=== PATIENT | female | born 1935 | race Caucasian/White ===

== ENCOUNTER 2018-09-28 23:33 | Emergency (ER) | payer MEDICARE ==
[~2018-09-28] VITALS: Ht 154.9 cm; Wt 77.1 kg
[2018-09-28 23:35] VITALS: BP 194/91
--- NOTE | 2018-09-28 23:40 | NUR ---
82/F BIBA FROM [facility]. S/P FALL 2 DAYS AGO. PT STATED THAT SHE FELL FORWARDS, REPORTS IMPACT ON L RIBS, DENIES HEAD TRAUMA/LOC. PT C/O 03/12 INTERMITTENT L LATERAL SIDE/RIBS PAIN, X2 DAYS. NO ABNORMALITY OR BRUISING NOTED ON L RIBS, REPORTS MILD TENDERNESS. PT DENIES FERGUSON, N/V. PT AOX4, GCS 15, SKIN PINK WARM AND DRY, RR EVEN AND UNLABORED. LUNG SOUNDS CLEAR BL. HX DM, HTN, GOUT, HIGH CHOLESTEROL, HYPOTHYROID RX PLAVIX, ATORVASTATIN, LISINOPRIL, ALLOPURINOL
--- NOTE | 2018-09-28 23:40 | NUR ---
PT BIB AMBULANCE. PLACED ON ER BED 5
[2018-09-28] MEDS ORDERED: AMLO5TAB5 PO (23:45)
[2018-09-28] MEDS ORDERED: SYN.1 PO (23:45)
[2018-09-28] MEDS ORDERED: LISI20TA2 PO (23:45)
[2018-09-28] MEDS ORDERED: ATOR40TA PO (23:45)
[2018-09-28] MEDS ORDERED: CLOP75TA55 PO (23:45)
[2018-09-28] MEDS ORDERED: VITD1000 PO (23:45)
[2018-09-28] MEDS ORDERED: ALLO100T21 PO (23:45)
--- NOTE | 2018-09-29 00:04 | NUR ---
DR. MINOR BEDSIDE EVALUATING PT
[2018-09-29 00:55] LABS: BASOPHILS # (AUTO) 0.1 K/uL (0.00-0.22); EOSINOPHILS # (AUTO) 0.2 K/uL (0-0.4); EOSINOPHILS % (AUTO) 3.7 % (0.0-4.0); HEMATOCRIT 39.4 % (36-48); HEMOGLOBIN 12.9 g/dL (12.0-16.0); LYMPHOCYTES % (AUTO) 32.2 % (20.5-51.1); MEAN CORPUSCULAR HEMOGLOBIN 28 pg (27-31); MEAN CORPUSCULAR HGB CONC 33 g/dL (33-37); MEAN CORPUSCULAR VOLUME 84.6 fL (80-94); MONOCYTES # (AUTO) 0.4 K/uL (0.8-1.0); MONOCYTES % (AUTO) 6.9 % (1.7-9.3); NEUTROPHILS # (AUTO) 3.5 K/uL (1.8-7.7); NEUTROPHILS % (AUTO) 56.2 % (42.2-75.2); PLATELET COUNT (AUTO) 235 K/uL (140-450); RED BLOOD CELL COUNT(AUTO) 4.65 MIL/uL (4.20-5.40); RED CELL DISTRIBUTION WIDTH 14.2 % (11.6-13.7); WHITE BLOOD COUNT (AUTO) 6.2 K/uL (4.8-10.8)
--- NOTE | 2018-09-29 00:55 | NUR ---
Pt hypertensive, BP 182/83. asymptomatic. Dr Ulrich aware. no new orders at this time.
--- NOTE | 2018-09-29 00:58 | NUR ---
PT TAKEN TO CT VIA BED
--- NOTE | 2018-09-29 01:14 | NUR ---
PT RETURNED FROM CT BACK IN ER BED 5
--- NOTE | 2018-09-29 01:15 | NUR ---
Pt unable to provide urine sample. Dr. Ulrich aware. No new orders at this time.
[2018-09-29] MEDS ORDERED: HYDROcodone/APAP 5/325 MG 1 TAB TAB PO ONE (01:20)
[2018-09-29 01:35] LABS: SODIUM SERUM 142 mmol/L (136-145)
[2018-09-29 01:36] LABS: ALBUMIN 3.8 g/dL (3.4-5.0); ANION GAP 12.4 (8-16); ASPARTATE AMINOTRANSFERASE 22 U/L (15-37); CHLORIDE 106 mmol/L (98-107); CREATININE 0.7 mg/dL (0.6-1.3); GLUCOSE 118 mg/dL (74-106); POTASSIUM 3.4 mmol/L (3.5-5.1); TOTAL BILIRUBIN 0.4 mg/dL (0.0-1.0); UREA NITROGEN, BLOOD 16 mg/dL (7-18)
[2018-09-29 02:40] VITALS: BP 182/83
--- NOTE | 2018-09-29 02:40 | NUR ---
Patient discharged with v/s stable. Written and verbal after care instructions given and explained. Patient alert, oriented and verbalized understanding of instructions. Wheel Chair Assisted to car. All questions addressed prior to discharge. ID band removed. Patient advised to follow up with PMD. Rx of Tylenol given. Patient educated on indication of medication including possible reaction and side effects. Opportunity to ask questions provided and answered.
== END 2018-09-29 02:40 | disposition home or self-care (01) ==
LOC: MED 23:33
DX: R07.81 Pleurodynia (principal); E11.9 Type 2 diabetes mellitus without complications; I10 Essential (primary) hypertension; Z79.899 Other long term (current) drug therapy
CPT/HCPCS: 36415; 71250; 80053; 85025; 93005; 99284

== ENCOUNTER 2020-01-29 18:13 | Inpatient (IN) | payer OTHER, SELFPAY ==
[~2020-01-29] VITALS: Ht 147.3 cm; Wt 71.7 kg
[~2020-01-29 18:13] MED LIST: ALLO100T21 PO; AMLO5TAB5 PO; ATOR40TA PO; CLOP75TA55 PO; LISI20TA2 PO; SYN.1 PO; VITD1000 PO
[2020-01-29 18:15] VITALS: BP 155/104
--- NOTE | 2020-01-29 18:20 | NUR ---
ERMD AT BEDSIDE
--- NOTE | 2020-01-29 18:20 | NUR ---
84 Y/O F C/C DYSPNEA X SEVERAL MONTHS PER PT. PT PRESENTS EUPNIC,AMBULATE WITH ASSIST,A/OX4, NO RESPIRATORY DISTRESS NOTED. PER PT S/P FALL YESTERDAY, DENIES HITTING HEAD OR LOC. PT COMPLAINTS OF BILATERAL KNEE PAIN, WITH LEFT KNEE PAIN MORE SEVERE, 6/10 PAIN, THROBBING PAIN. NKA. HX HTN,THYROID DISEASE. RX AMLODOPINE,SYNTHROID. PT UNABLE TO RECALL BLOOD THINNER MEDICATION, PER PT TAKES BLOOD THINNERS. NO NVD. SIDE RAIL X2.
[2020-01-29] MEDS ORDERED: VALS40TA3 PO (18:31)
--- NOTE | 2020-01-29 18:43 | NUR ---
RAD AT BEDSIDE
--- NOTE | 2020-01-29 19:08 | NUR ---
REPORT GIVEN TO JULI RESENDEZ FOR CONTINUITY OF CARE
[2020-01-29 19:15] LABS: BASOPHILS # (AUTO) 0.1 K/uL (0.00-0.22); BASOPHILS % (AUTO) 0.7 % (0.0-2.0); EOSINOPHILS # (AUTO) 0.2 K/uL (0-0.4); EOSINOPHILS % (AUTO) 2.6 % (0.0-4.0); HEMATOCRIT 39.1 % (36-48); HEMOGLOBIN 12.8 g/dL (12.0-16.0); LYMPHOCYTES # (AUTO) 1.4 K/uL (2.5-16.5); MEAN CORPUSCULAR HEMOGLOBIN 29 pg (27-31); MEAN CORPUSCULAR HGB CONC 33 g/dL (33-37); MEAN CORPUSCULAR VOLUME 86.9 fL (80-94); MONOCYTES # (AUTO) 0.4 K/uL (0.8-1.0); MONOCYTES % (AUTO) 6.3 % (1.7-9.3); NEUTROPHILS % (AUTO) 70.4 % (42.2-75.2); PLATELET COUNT (AUTO) 237 K/uL (140-450); WHITE BLOOD COUNT (AUTO) 7.1 K/uL (4.8-10.8)
--- NOTE | 2020-01-29 19:31 | NUR ---
MASSIEL antigen test collected via nasopharyngeal route.
--- NOTE | 2020-01-29 19:33 | NUR ---
pt remains laying down on bed, HOB elevated. no needs at this time.
[2020-01-29 19:34] LABS: ALBUMIN 3.8 g/dL (3.4-5.0); ANION GAP 16.8 (8-16); ASPARTATE AMINOTRANSFERASE 14 U/L (15-37); CARBON DIOXIDE 24.7 mmol/L (21-32); CHLORIDE 106 mmol/L (98-107); CREATININE 0.9 mg/dL (0.6-1.3); GLUCOSE 187 mg/dL (74-106); POTASSIUM 3.5 mmol/L (3.5-5.1); SODIUM SERUM 144 mmol/L (136-145); TOTAL BILIRUBIN 0.5 mg/dL (0.0-1.0); UREA NITROGEN, BLOOD 17 mg/dL (7-18)
--- NOTE | 2020-01-29 19:37 | NUR ---
spoke to toney pt's daughter. asking about pt status.
--- NOTE | 2020-01-29 19:59 | NUR ---
critical lab value of troponin 0.[address] Solis.
[2020-01-29] MEDS ORDERED: lisinopriL 20 MG TAB PO ONE (20:20)
[2020-01-29] MEDS ORDERED: METOPROLOL 25 MG TAB PO ONE (20:20)
--- NOTE | 2020-01-29 21:10 | NUR ---
Patient will be admitted to care of Dr. Benavides. Admited to telemetry. Will go to room 119. Belongings list completed. Report to Claudette RESENDEZ.
--- NOTE | 2020-01-29 21:13 | NUR ---
ADMITTED 84 F, FROM [facility], AOX4, ON 3L NC, RESPIRATION EVEN AND UNLABORED, NO SOB, DENIES PAIN, WITH IV CANNULA 20 G AT LEFT HAND, INTACT AND PATENT, MRSA SWAB DONE, V/S TAKEN, ORIENTED TO ROOM, ANSWER ALL QUESTIONS, KEPT COMFORTABLE, PLAN OF CARE DISCUSSED, FALL RISK PROTOCOL OBSERVED, SAFETY MEASURES IN PLACE, CALL LIGHT WITHIN REACH.
[2020-01-29] MEDS ORDERED: NACL 0.9% 1,000 ML IV SCH (22:05)
[2020-01-29] MEDS ORDERED: FUROSEMIDE 40 MG/4 ML VIAL IVP SCH (22:05)
--- NOTE | 2020-01-29 22:05 | NUR ---
SPOKE TO DR. LOVING RE: ADMISSION OF PATIENT AND INCREASED BP OF 187/86, HR 70, DENIES PAIN, NO SOB, NO DISTRESS NOTED. ORDERED, LASIX IVP, LISINOPRIL PO, METOPROLOL PO, IVF OF NS AT 10CC/HR. NOTED AND CARRIED OUT.
[2020-01-29] MEDS ORDERED: lisinopriL 20 MG TAB ONE (23:12)
[2020-01-29] MEDS ORDERED: METOPROLOL 25 MG TAB ONE (23:13)
[2020-01-30] VITALS: BP 158/67
--- NOTE | 2020-01-30 | NUR ---
V/S TAKEN, DENIES PAIN, NO SOB.
[2020-01-30] MEDS ORDERED: DOCUSATE SODIUM 100 MG GELCAP PO PRN (00:35)
[2020-01-30] MEDS ORDERED: ZOLPIDEM 5 MG TAB PO PRN (00:35)
[2020-01-30] MEDS ORDERED: ACETAMINOPHEN 325 MG TAB PO PRN (00:35)
[2020-01-30] MEDS ORDERED: HYDROcodone/APAP 5/325 MG 1 TAB TAB PO PRN (00:35)
[2020-01-30] MEDS ORDERED: LORazepam 2 MG/ML VIAL IM/IVP PRN (00:35)
[2020-01-30] MEDS ORDERED: MORPHINE SULFATE 2 MG/ML SYR IVP PRN (00:35)
[2020-01-30] MEDS ORDERED: NITROGLYCERIN 0.4 MG TAB SL PRN (00:35)
[2020-01-30] MEDS ORDERED: ONDANSETRON 4 MG/2 ML VIAL IM/IVP PRN (00:35)
[2020-01-30] MEDS: NACL 0.9% 1,000 ML IV SCH (00:35)
[2020-01-30] MEDS ORDERED: POTASSIUM CHLORIDE 10 MEQ TABER PO PRN (01:10)
[2020-01-30] MEDS ORDERED: MAG SULF 2000 MG/WATER PREMIX 50 ML IV PRN (01:10)
[2020-01-30 02:04] LABS: CHOL/HDL RATIO 4.6 (1-4.5)
[2020-01-30 02:08] LABS: THYROID STIMULATING HORMONE 0.03 uIU/mL (0.34-3.74)
--- NOTE | 2020-01-30 02:31 | NUR ---
PATIENT IS ASLEEP, RESPIRATION EVEN AND UNLABORED.
[2020-01-30 04:00] VITALS: BP 117/41
[2020-01-30] MEDS: LEVOTHYROXINE 0.1 MG TAB PO SCH (05:54)
--- NOTE | 2020-01-30 05:57 | NUR ---
SYNTHROID PO GIVEN ORDERED, TOLERATED WELL.
--- NOTE | 2020-01-30 07:27 | NUR ---
RECEIVED REPORT FROM NIGHT NURSE FOR CONTINUITY OF CARE, PT IS STABLE, PT IS ASLEEP, NO SIGNS OF RESPIRATORY DISTRESS NOTED, RESPIRATIONS ARE EVEN AND UNLABORED ON ROOM AIR, BED IN LOW POSITION, PT HAS LH20G INFUSING NS AT10ML, SKIN INTACT, PT IS FALL RISK,SAFETY MEASURES IN PLACE, CALL LIGHT WITHIN REACH, WILL CONTINUE TO MONITOR.
--- NOTE | 2020-01-30 07:28 | NUR ---
PATIENT IS IN STABLE CONDITION. BEDSIDE ENDORSEMENT GIVEN TO AM SHIFT RN FOR CONTINUITY OF CARE.
--- NOTE | 2020-01-30 07:53 | NUR ---
PATIENT HAS BEEN SCREENED AND CATEGORIZED MODERATE NUTRITION RISK. PATIENT WILL BE SEEN WITHIN 3-5 DAYS OF ADMISSION. 02/01/20 02/03/[address]
[2020-01-30 08:00] VITALS: BP 120/43
[2020-01-30] MEDS: amLODIPine 5 MG TAB PO SCH ×2 (09:00→09:15)
[2020-01-30] MEDS: METOPROLOL 25 MG TAB PO SCH ×2 (09:00→20:54)
[2020-01-30] MEDS: lisinopriL 20 MG TAB PO SCH (09:00)
[2020-01-30] MEDS ORDERED: ATORVASTATIN 20 MG TAB PO SCH (09:00)
[2020-01-30] MEDS: ASPIRIN 81 MG TAB.CHEW PO SCH (09:00)
[2020-01-30] MEDS: VALSARTAN 80 MG TAB PO SCH (09:19)
[2020-01-30] MEDS: CHOLECALCIFEROL 1,000 IU TAB PO SCH (09:20)
[2020-01-30] MEDS: CLOPIDOGREL 75 MG TAB PO SCH (09:20)
[2020-01-30] MEDS: FUROSEMIDE 40 MG/4 ML VIAL IVP SCH (09:21)
--- NOTE | 2020-01-30 09:27 | NUR ---
ADMINISTERED SCHEDULED MEDICATION, MEDICATION EDUCATION GIVEN, PT VERBALIZED UNDERSTANDING, PT TOLERATED WELL, PT IS STABLE, NO SIGNS OF DISTRESS NOTED, CALL LIGHT WITHIN REACH, ALL NEEDS MET.
--- NOTE | 2020-01-30 09:44 | NUR ---
RECEIVED TORB FROM NAKUL SEYMOUR FOR TROPONIN NOW AND IN 8 HOURS , WILL INPUT ORDER
--- NOTE | 2020-01-30 11:40 | NUR ---
HELP PT DIAL PHONE TO SPEAK WITH HOBBY, PT EDUCATED ON USE OF PHONE, PT IS STABLE, NO SIGNS OF DISTRESS NOTED, CALL LIGHT WITHIN REACH.
[2020-01-30 12:00] VITALS: BP 135/56
--- NOTE | 2020-01-30 13:00 | NUR ---
PT SITTING IN BED, NO SIGNS OF DISTRESS NOTED, CALL LIGHT WITHIN REACH.
--- NOTE | 2020-01-30 15:13 | NUR ---
PT RESTING IN BED, NO SIGNS OF DISTRESS NOTED, ALL NEEDS MET, CALL LIGHT WITHIN REACH.
[2020-01-30 16:00] VITALS: BP 122/54
--- NOTE | 2020-01-30 18:45 | NUR ---
OBTAIN URINE SAMPLE FOR UA
[2020-01-30 18:59] LABS: APPEARANCE,URINE CLEAR (CLEAR); BILIRUBIN,URINE NEGATIVE (NEGATIVE); BLOOD, URINE NEGATIVE (NEGATIVE); COLOR,URINE YELLOW (YELLOW); LEUKOCYTE ESTERASE ,URINE NEGATIVE (NEGATIVE); NITRITE, URINE NEGATIVE (NEGATIVE); PH,URINE 5.5 (5.0-9.0); UGLUCOSE NEGATIVE (NEGATIVE)
--- NOTE | 2020-01-30 19:05 | NUR ---
RECEIVED PATIENT IN STABLE CONDITION FROM AM SHIFT NURSE FOR CONTINUITY OF CARE. TELE PATIENT. AAOX3-4, ABLE TO MAKE NEEDS KNOWN. RESPIRATIONS EVEN, UNLABORED. CONTINUES ON O2 3L VIA NC, O2SAT 94%. SKIN WARM, DRY. IV SITE TO LEFT FOREARM PATENT/INTACT, INFUSING FLUIDS WELL. NO C/O PAIN. NO S/S ACUTE DISTRESS. ABDOMEN SOFT, NONTENDER, NONDISTENDED. PATIENT IS INCONTINENT OF BOWEL AND BLADDER. PLAN OF CARE DISCUSSED WITH PATIENT. SAFETY PRECAUTIONS IN PLACE. CALL LIGHT WITHIN REACH.
--- NOTE | 2020-01-30 19:05 | NUR ---
ENDORSE PT TO NIGHT NURSE FOR CONTINUITY OF CARE, PT IS STABLE
[2020-01-30 19:08] LABS: BARBITURATE, URINE NEGATIVE ng/ml (NEG <=200); BENZODIAZEPINE, URINE NEGATIVE ng/mL (NEG <=200); CANNABINOID, URINE NEGATIVE ng/mL (NEG <=50); COCAINE, URINE NEGATIVE ng/mL (NEG <=300); OPIATE, URINE NEGATIVE ng/mL (NEG <=2000); PHENCYCLIDINE SCREEN,URINE NEGATIVE ng/mL (NEG <=25)
[2020-01-30 20:00] VITALS: BP 119/74
[2020-01-30] MEDS: ATORVASTATIN 20 MG TAB PO SCH (20:53)
--- NOTE | 2020-01-30 21:00 | NUR ---
PATIENT RESTING COMFORTABLY IN BED. NO C/O PAIN. NO S/S ACUTE DISTRESS. TURN AND REPOSITIONED FOR COMFORT. CALL LIGHT WITHIN REACH. SAFETY PRECAUTIONS IN PLACE.
--- NOTE | 2020-01-30 23:27 | NUR ---
PATIENT IS ASLEEP AND CONTINUES IN STABLE CONDITION. NO S/S ACUTE DISTRESS. CALL LIGHT WITHIN REACH.
[2020-01-31] VITALS: BP 132/54
[2020-01-31] MEDS: NACL 0.9% 1,000 ML IV SCH (00:35)
--- NOTE | 2020-01-31 01:12 | NUR ---
MADE ROUNDS. INCONTINENT CARE RENDERED WITH HAIR CUTTER AT BEDSIDE. NO C/O PAIN. NO S/S ACUTE DISTRESS. CALL LIGHT WITHIN REACH. SAFETY PRECAUTIONS IN PLACE.
--- NOTE | 2020-01-31 03:30 | NUR ---
PROVIDED EDUCATION REGARDING NECESSITY OF TAKING VITALS WELL PLAN OF CARE. PATIENT VERBALIZED UNDERSTANDING BUT NEEDS REINFORCEMENT. PATIENT IS IN STABLE CONDITION AT THIS TIME. NO C/O PAIN. NO S/S ACUTE DISTRESS. CALL LIGHT WITHIN REACH. SAFETY PRECAUTIONS IN PLACE.
[2020-01-31 04:00] VITALS: BP 129/69
--- NOTE | 2020-01-31 05:15 | NUR ---
PATIENT RESTING COMFORTABLY IN BED. NO C/O PAIN. NO S/S ACUTE DISTRESS. CALL LIGHT WITHIN REACH. SAFETY PRECAUTIONS IN PLACE.
[2020-01-31] MEDS: LEVOTHYROXINE 0.1 MG TAB PO SCH (06:00)
[2020-01-31 06:40] LABS: BASOPHILS # (AUTO) 0.1 K/uL (0.00-0.22); BASOPHILS % (AUTO) 1.1 % (0.0-2.0); EOSINOPHILS # (AUTO) 0.3 K/uL (0-0.4); EOSINOPHILS % (AUTO) 6.1 % (0.0-4.0); HEMATOCRIT 39.3 % (36-48); HEMOGLOBIN 12.8 g/dL (12.0-16.0); LYMPHOCYTES # (AUTO) 1.5 K/uL (2.5-16.5); LYMPHOCYTES % (AUTO) 29.1 % (20.5-51.1); MEAN CORPUSCULAR HEMOGLOBIN 28 pg (27-31); MEAN CORPUSCULAR HGB CONC 33 g/dL (33-37); MEAN CORPUSCULAR VOLUME 87.1 fL (80-94); MONOCYTES # (AUTO) 0.5 K/uL (0.8-1.0); MONOCYTES % (AUTO) 9.1 % (1.7-9.3); NEUTROPHILS # (AUTO) 2.8 K/uL (1.8-7.7); NEUTROPHILS % (AUTO) 54.6 % (42.2-75.2); PLATELET COUNT (AUTO) 235 K/uL (140-450); RED BLOOD CELL COUNT(AUTO) 4.51 MIL/uL (4.20-5.40); RED CELL DISTRIBUTION WIDTH 14.9 % (11.6-13.7); WHITE BLOOD COUNT (AUTO) 5.1 K/uL (4.8-10.8)
[2020-01-31 06:56] LABS: ANION GAP 12.6 (8-16); CARBON DIOXIDE 26.7 mmol/L (21-32); CHLORIDE 107 mmol/L (98-107); CREATININE 0.8 mg/dL (0.6-1.3); GLUCOSE 117 mg/dL (74-106); POTASSIUM 3.3 mmol/L (3.5-5.1); SODIUM SERUM 143 mmol/L (136-145); UREA NITROGEN, BLOOD 24 mg/dL (7-18)
[2020-01-31 07:03] LABS: MAGNESIUM 1.6 mg/dL (1.8-2.4); PHOSPHORUS 4.5 mg/dL (2.5-4.9)
--- NOTE | 2020-01-31 07:15 | NUR ---
ENDORSED PATIENT IN STABLE CONDITION TO AM SHIFT NURSE FOR CONTINUITY OF CARE.
--- NOTE | 2020-01-31 07:16 | NUR ---
RECEIVED REPORT FROM PM RNJAMIR. PT CAME FROM [facility]. C/O: SOB. DX: ELEVATED TROPONIN, FLUID OVERLOAD, AND PULMONARY EDEMA. HX: CHF, CAD, HTN. NKA. TELE: SB 53-58. IV: LT FA 20G NS AT 10MLS/HR. CARDIAC DIET. O2: NC 3L 94-96%. PT USES A WALKER. NO BM. SKIN IS INTACT. TROPONIN IS TRENDING DOWN 0.065. PENDING RESULTS: ECHO, CHX. PT FELL AT [facility]. XRAY AND CT COMPLETE FOR FALL.
[2020-01-31 08:00] VITALS: BP 135/52
[2020-01-31 08:09] LABS: T4 (THYROXINE) 9.7 ug/dL (4.5-12.0)
[2020-01-31] MEDS: METOPROLOL 25 MG TAB PO SCH ×2 (09:00→20:25)
[2020-01-31] MEDS: lisinopriL 20 MG TAB PO SCH ×2 (09:00→09:46)
[2020-01-31] MEDS: ASPIRIN 81 MG TAB.CHEW PO SCH ×2 (09:00→09:44)
[2020-01-31] MEDS: VALSARTAN 80 MG TAB PO SCH (09:45)
[2020-01-31] MEDS: amLODIPine 5 MG TAB PO SCH (09:45)
[2020-01-31] MEDS: CLOPIDOGREL 75 MG TAB PO SCH (09:45)
--- NOTE | 2020-01-31 09:45 | NUR ---
ADMINISTERED SCHED MED PRESCRIBED PER MD ORDER. PT REFUSED ASPIRIN AND LISINOPRIL. EDUCATED PATIENT ON PURPOSE OF MEDICATIONS. PT STILL REFUSED. PT TOLERATED WELL. MEDICATION EDUCATION PERFORMED. PT VERBALIZED UNDERSTANDING. SAFETY MEASURES IN PLACE. WILL CONTINUE TO MONITOR
[2020-01-31] MEDS: CHOLECALCIFEROL 1,000 IU TAB PO SCH (09:46)
[2020-01-31] MEDS: FUROSEMIDE 40 MG/4 ML VIAL IVP SCH (09:50)
--- NOTE | 2020-01-31 11:00 | NUR ---
PT IS RESTING IN BED. NO COMPLAINTS OF PAIN. RESPIRATIONS ARE EVEN AND UNLABORED. WILL CONTINUE TO MONITOR
[2020-01-31 12:00] VITALS: BP 168/60
--- NOTE | 2020-01-31 13:00 | NUR ---
PT IS RESTING IN BED, EYES OPEN. NO COMPLAINTS PAIN. PT IS ABLE TO SELF REPOSITION. NO SIGNS OF DISTRESS.
[2020-01-31 16:00] VITALS: BP 145/51
--- NOTE | 2020-01-31 16:30 | NUR ---
PT IS RESTING IN BED. VS STABLE. COOK MESS, ANTONINO CHANGED PT. NO COMPLAINTS OF PAIN.
--- NOTE | 2020-01-31 18:50 | NUR ---
STARTED MAG IN STERILE WATER DAILY PRN FOR MG+ OF 1.6. PT TOLERATING WELL
--- NOTE | 2020-01-31 19:24 | NUR ---
TRANSFER OF CARE TO PM RNCRISTIAN. PT IS RESTING IN BED. NO SIGNS OF DISTRESS.
--- NOTE | 2020-01-31 19:25 | NUR ---
RECEIVED PT IN STABLE CONDITION FROM AM NURS.E FOR CONTINUITY OF CARE. TELE PT. AWAKE,ALERT AND ORIENTED X4. BEDREST. WITH NO DISTRESS NOTED. O2 3L/NC. IVF INFUSING WELL ON THE LT FA G#20. CLEAR AND PATENT. FREQ TROUNDS NEEDED. SIDE RAILS UP X2. BED ON ,OW POSITTION. CALL LIGHT WITHIN REACH. WILL CONTINUETO MONITOR.
[2020-01-31 20:00] VITALS: BP 146/52
[2020-01-31] MEDS: ATORVASTATIN 20 MG TAB PO SCH (20:24)
--- NOTE | 2020-01-31 20:30 | NUR ---
TOOK ALL NIGHT DUE MEDS . TOLERATED WELL. NO C/O ANY DISCOMFORT NOTED.
--- NOTE | 2020-01-31 22:00 | NUR ---
MADE ROUNDS. PT REPOSITIONED FOR COMFORT. NO C/O AY PAIN NOTED.
[2020-02-01] VITALS: BP 118/56
[2020-02-01] MEDS: NACL 0.9% 1,000 ML IV SCH (00:35)
--- NOTE | 2020-02-01 00:40 | NUR ---
MADE ROUNDS. SLEEP. NO S/S OF ANY DISTRESS NOTED.
--- NOTE | 2020-02-01 02:00 | NUR ---
CHECKED ON PT. ASLEEP. NO S/S OF ANY DISCOMFORT NOR DISTRESS NOTED.
--- NOTE | 2020-02-01 04:12 | NUR ---
VITLA SIGNS TAKE, O2 SAT 93% ON ROOM AIR. NO DISTRESS NOTED. PT REFUSED TO HAVE THE O2 THIS AM. SHE SAID IT MADE HER FEEL UNCOMFORTABLE .
[2020-02-01 04:26] VITALS: BP 125/43
--- NOTE | 2020-02-01 05:00 | NUR ---
PT REFUSED TO HABE BLOOD DRAW THIS AM. LAB TO TRY LATER TIME.
[2020-02-01] MEDS: LEVOTHYROXINE 0.1 MG TAB PO SCH (05:51)
--- NOTE | 2020-02-01 07:28 | NUR ---
ENDORSED PT IN STABLE CONDITION TO AM NURSE.
--- NOTE | 2020-02-01 07:29 | NUR ---
RECEIVED PT FROM NIGHT NURSE. AWAKE, ALERT AND ORIENTED X3, NO C/O PAIN AT THIS TIME, NO SOB, RESPIRATIONS ARE EVEN AND UNLABORED. ON ROOM AIR. WITH IV ON LFA 20G ON TKO. SAFETY PRECAUTIONS IN PLACE. CALL LIGHT WITHIN REACH. WILL CONTINUE TO MONITOR.
[2020-02-01 08:00] VITALS: BP 134/53
[2020-02-01] MEDS ORDERED: ASPI81CT95 PO (08:10)
[2020-02-01] MEDS ORDERED: ATOR20TA40 PO (08:10)
[2020-02-01] MEDS ORDERED: METO25TA PO (08:10)
[2020-02-01] MEDS ORDERED: FURO-570 PO (08:12)
[2020-02-01] MEDS: METOPROLOL 25 MG TAB PO SCH (09:00)
--- NOTE | 2020-02-01 09:20 | NUR ---
DUE MORNING MEDS GIVEN. TOLERATED PO MEDS WELL.
[2020-02-01] MEDS: FUROSEMIDE 40 MG/4 ML VIAL IVP SCH (09:55)
[2020-02-01] MEDS: ASPIRIN 81 MG TAB.CHEW PO SCH (09:55)
[2020-02-01] MEDS: ATORVASTATIN 20 MG TAB PO SCH (09:56)
[2020-02-01] MEDS: amLODIPine 5 MG TAB PO SCH (09:56)
[2020-02-01] MEDS: lisinopriL 20 MG TAB PO SCH (09:56)
[2020-02-01] MEDS: CLOPIDOGREL 75 MG TAB PO SCH (09:56)
[2020-02-01] MEDS: CHOLECALCIFEROL 1,000 IU TAB PO SCH (09:56)
[2020-02-01] MEDS: VALSARTAN 80 MG TAB PO SCH (09:56)
--- NOTE | 2020-02-01 11:00 | NUR ---
PT RESTING IN BED. NO C/O PAIN, NO SOB, NO APPARENT DISTRESS
--- NOTE | 2020-02-01 14:00 | NUR ---
DISCHARGE INSTRUCTIONS AND PRESCRIPTION GIVEN TO PT. ALSO GIVEN TO PT'S SON. BOTH VERBALIZED UNDERSTANDING. MD FOLLOW UP INSTRUCTED. DIET TEACHING DONE. REMOVED IV WITH LUMEN INTACT. ID BAND REMOVED. ASSISTED PT TO FRONT LOBBY. PICKED BY SON VIA PRIVATE VEHICLE. PT STABLE UPON DISCHARGE
[2020-02-01] MEDS ORDERED: LEVO0.083 PO (15:09)
== END 2020-02-01 14:00 | disposition home health service (06) | DRG 205 ==
LOC: MED 18:13 → MTU 20:22
DX: M94.0 Chondrocostal junction syndrome [Tietze] (principal); I21.A1 Myocardial infarction type 2; I50.43 Acute on chronic combined systolic (congestive) and diastolic (congestive) heart failure; I11.0 Hypertensive heart disease with heart failure; E11.9 Type 2 diabetes mellitus without complications; W18.30XA Fall on same level, unspecified, initial encounter; Z20.828 Contact with and (suspected) exposure to other viral communicable diseases; I25.9 Chronic ischemic heart disease, unspecified; E03.9 Hypothyroidism, unspecified; M17.12 Unilateral primary osteoarthritis, left knee; E86.0 Dehydration; M70.22 Olecranon bursitis, left elbow; K44.9 Diaphragmatic hernia without obstruction or gangrene; I25.10 Atherosclerotic heart disease of native coronary artery without angina pectoris; Y93.89 Activity, other specified; Y92.89 Other specified places as the place of occurrence of the external cause; Y99.8 Other external cause status; Z79.899 Other long term (current) drug therapy
CPT/HCPCS: 36415; 70450; 71045; 73060; 73562; 80048; 80053; 80305; 81003; 82140; 82150; 83036; 83690; 83735; 83880; 84100; 84134; 84436; 84443; 84484; 85025; 85610; 85730; 87081; 93005; 97110; 97116; 97161-GP; 99285; C1758; J1644; J1940; J3475; J7030; Q0092

== ENCOUNTER 2020-03-27 18:14 | Emergency (ER) | payer OTHER, SELFPAY ==
[~2020-03-27] VITALS: Ht 162.6 cm; Wt 83.9 kg
[~2020-03-27 18:14] MED LIST changes: +ASPI81CT95 PO; +ATOR20TA40 PO; +FURO-570 PO; +LEVO0.083 PO; -LISI20TA2 PO; +METO25TA PO; -SYN.1 PO; +VALS40TA3 PO
[2020-03-27 18:15] VITALS: BP 175/85
[2020-03-28 10:52] VITALS: BP 156/73
== END 2020-03-28 10:53 ==
LOC: MED 18:14
DX: S09.90XA Unspecified injury of head, initial encounter (principal); M25.512 Pain in left shoulder; E11.9 Type 2 diabetes mellitus without complications; E07.9 Disorder of thyroid, unspecified; I10 Essential (primary) hypertension; Z86.73 Personal history of transient ischemic attack (TIA), and cerebral infarction without residual deficits; Z90.49 Acquired absence of other specified parts of digestive tract; Z90.710 Acquired absence of both cervix and uterus; Z79.899 Other long term (current) drug therapy; Z79.82 Long term (current) use of aspirin; W01.0XXA Fall on same level from slipping, tripping and stumbling without subsequent striking against object, initial encounter; Y93.89 Activity, other specified; Y92.89 Other specified places as the place of occurrence of the external cause; Y99.8 Other external cause status
CPT/HCPCS: 70450; 73030; 87426; 99284; Q0092

== ENCOUNTER 2020-12-20 00:40 | Emergency (ER) | payer MEDICAID, OTHER ==
[~2020-12-20] VITALS: Ht 160 cm; Wt 90.7 kg
[2020-12-20 00:40] VITALS: BP 154/92
[~2020-12-20 00:40] MED LIST changes: +AMLO-271 PO; -AMLO5TAB5 PO
--- NOTE | 2020-12-20 00:40 | NUR ---
[facility] FROM [facility] WITH C/O OF LOWER BACK PAIN. PER EMS, PT. STATED "MY LEFT FOREARM WAS ITCHY AND IT HURT AND I PUT CREAM ON IT AND NOW IT'S GONE." PT. STATES HER BACK PAIN "HURTS FROM GURNEY." AAOX3 TO NAME, PLACE, TIME. PT. RATES PAIN AT 2/10 ON THE PAIN SCALE. DENIES N/V/D; SKIN IS PINK/WARM/DRY; AAOX4 WITH EVEN AND STEADY GAIT; HR EVEN AND REGULAR; PT DENIES ANY FEVER, CP, SOB, OR COUGH AT THIS TIME; VSS; PATIENT POSITIONED FOR COMFORT; HOB ELEVATED; BEDRAILS UP X2; BED DOWN. ER MD MADE AWARE OF PT STATUS. PMH: DIABETES, HTN, STROKE, HYPOTHYROIDISM ALLERGIES: NKA
--- NOTE | 2020-12-20 00:43 | NUR ---
Dr. Magana examining patient.
--- NOTE | 2020-12-20 00:46 | NUR ---
PT [facility] BLS. TAKEN TO BED 7
--- NOTE | 2020-12-20 01:00 | NUR ---
NO NURSING INTERVENTIONS NEEDED.
--- NOTE | 2020-12-20 02:00 | NUR ---
CHANGED DIAPER FOR PT.
--- NOTE | 2020-12-20 02:24 | NUR ---
PT. REPOSITIONED FOR COMFORT. VOICES NO COMPLAINTS AT THIS TIME
[2020-12-20 04:29] VITALS: BP 145/85
--- NOTE | 2020-12-20 04:29 | NUR ---
Patient discharged with v/s stable. Written and verbal after care instructions given and explained. Patient verbalized understanding. Wheel Chair Assisted, accompanied by MARTHA Fox. All questions addressed prior to discharge. Advised to follow up with PMD.
== END 2020-12-20 04:29 | disposition home or self-care (01) ==
LOC: MED 00:40
DX: M79.632 Pain in left forearm (principal); E11.9 Type 2 diabetes mellitus without complications; I10 Essential (primary) hypertension; E03.9 Hypothyroidism, unspecified; Z79.899 Other long term (current) drug therapy; Z79.82 Long term (current) use of aspirin
CPT/HCPCS: 99283